=== PATIENT | female | born 1985 | race Caucasian/White ===

== ENCOUNTER → 2017-06-14 | Outpatient (CLI) | payer BC ==
[~2017-06-14] MED LIST: GADOBUTROL 7.5 MMOL/7.5 ML PFS ONE
== END | disposition home or self-care (01) ==
LOC: RAD 06:45
PROVIDERS: ATTEND Student in an Organized Health Care Education/Training Program
DX: O73.1 Retained portions of placenta and membranes, without hemorrhage (principal); Z3A.00 Weeks of gestation of pregnancy not specified
CPT/HCPCS: 72197; A9585